=== PATIENT | male | born 1960 | race Caucasian/White ===

== ENCOUNTER 2019-10-14 04:47 | Emergency (ER) | payer OTHER, SELFPAY ==
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
[2019-10-14 05:00] VITALS: BP 172/95; PULSE 65; RESP 20; TEMP 36.8; O2SAT 99
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
[2019-10-14 05:12] LABS: Hematocrit 41.8 % (40.0-54.0); Hemoglobin 14.2 g/dL (14.0-18.0); Mean Corpuscular Hemoglobin 30.5 pg (27.0-31.0); Mean Corpuscular Volume 89.7 fL (78.0-102.0); Mean Platelet Volume 9.9 fl (8.7-11.0); Platelet Count Result 197 K/mm3 (150-420); Red Blood Count 4.66 M/mm3 (4.70-6.10); White Blood Count 6.3 K/mm3 (4.8-10.8)
[2019-10-14 05:21] LABS: Partial Thromboplastin Time 26.5 SEC (22.3-31.6); Prothrombin Time 10.3 Seconds (9.64-11.0)
[2019-10-14 05:25] LABS: Alanine Aminotransferase 39 U/L (16-63); Alkaline Phosphatase 61 U/L (46-116); Anion Gap 16.6 mmol/L (7-16); Aspartate Amino Transferase 22 U/L (15-37); Bilirubin,Total 0.4 mg/dL (0.00-1.00); Blood Urea Nitrogen 17 mg/dL (7-18); Calcium 8.5 mg/dL (8.5-10.1); Carbon Dioxide 23 mmol/L (21-32); Chloride 103 mmol/L (98-108); Estimated CRCL calculation 105 ml/min; Estimated Glomerular Filt Rate > 60; Glucose 105 mg/dL (70-99); Osmolality Calculated 289 mOsm/kg (285-295); Potassium 3.6 mmol/L (3.5-5.1); Sodium 139 mmol/L (136-145); Total Protein 7.7 g/dL (6.4-8.2)
[2019-10-14 05:28] LABS: Ethanol 161 mg/dL (0-6)
[2019-10-14 05:30] VITALS: BP 164/91; PULSE 67; RESP 20; O2SAT 95
--- NOTE | 2019-10-14 05:36 | PC.NURSE ---
Pt. requests transfer to [facility]. Paperwork signed for transfer.
[2019-10-14] MEDS: SODIUM CHLORIDE 0.9% IV 1,000 ML 125 ML IV CONT (05:49)
[2019-10-14 05:56] VITALS: BP 155/95; PULSE 64; RESP 20; O2SAT 93
[2019-10-14 05:58] LABS: Add Urine Microscopic? NO; Appearance Urine Clear (Clear); Bilirubin Urine Negative (Negative); Blood Urine Negative (Negative); Color Urine Straw (Yellow); Glucose Urine UA Negative (Negative); Ketones Urine Negative (Negative); Leukocyte Esterase Ur Negative LEU/UL (Negative); Nitrate Urine Negative (Negative); Protein Urine Negative (Negative); Specific Grav Ur <= 1.005 (1.010-1.020); Urobilinogen Urine 0.2 mg/dL (0.2-1.0); pH Urine 5.5 (5.0-8.0)
--- NOTE | 2019-10-14 06:03 | PC.NURSE ---
[place] [facility]
[2019-10-14 06:07] LABS: Amphetamine Screen Urine Negative (Negative); Barbiturate Screen Urine Negative (Negative); Benzodiazepines Screen Urine Negative (Negative); Cannabinoid Screen Urine Negative (Negative); Cocaine Screen Urine Negative (Negative); Methadone Screen Urine Negative (Negative); Opiate Screen Urine Negative (Negative); Phencyclidine Screen Urine Negative (Negative)
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
[2019-10-14 06:27] VITALS: BP 160/90; PULSE 92; RESP 18; O2SAT 95
[2019-10-14] MEDS: MORPHINE SULFATE 2 MG/ML INJ IV PUSH (06:32)
[2019-10-14 06:41] VITALS: BP 145/79; PULSE 68; RESP 18; O2SAT 93
== END 2019-10-14 07:04 | disposition short-term general hospital (02) ==
PROVIDERS: Emergency Provider Surgery; PCP Internal Medicine
DX: S01.91XA Laceration without foreign body of unspecified part of head, initial encounter (principal); S80.01XA Contusion of right knee, initial encounter; V89.2XXA Person injured in unspecified motor-vehicle accident, traffic, initial encounter
CPT/HCPCS: 36415; 70450; 70486; 71045; 72125; 72170; 73560; 73590; 80053; 80307; 81003; 85027; 85610; 85730; 96361; 96374; 99285; J2270; J7030; L0150

== ENCOUNTER 2022-07-15 09:43 | Outpatient (CLI) | payer OTHER, SELFPAY ==
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
== END 2022-07-15 09:44 | disposition home or self-care (01) ==
LOC: CHSIMG 09:48
PROVIDERS: PCP Internal Medicine; Visit Provider Internal Medicine
DX: M25.561 Pain in right knee (principal); M17.11 Unilateral primary osteoarthritis, right knee
CPT/HCPCS: 73564

== ENCOUNTER 2024-03-04 18:32 | Emergency (ER) | payer OTHER, BC, SELFPAY ==
[2024-03-04 18:32] VITALS: BP 152/72; PULSE 61; RESP 16; TEMP 36.4; O2SAT 96
--- NOTE | 2024-03-04 19:41 | ED.GENADULT ---
HPI - General Adult General Chief complaint: Wound/Laceration Stated complaint: hand lac Time Seen by Provider: 03/04/24 19:08 Source: patient Mode of arrival: ambulatory Limitations: no limitations History of Present Illness HPI narrative: this is a 63-year-old male who presents to the ED with chief complaint of laceration injury to the dorsum of the left hand at the [facility]. This happened just prior to arrival. Patient states that he was trying to fix a broken frame it. One of the glass pieces broke off And slid down his hand. denies any further sites of pain or injury. Tetanus is up today. No blood thinners. Related Data Home Medications Medication Instructions Recorded Confirmed hydrochlorothiazide 12.5 mg capsule 12.5 mg PO DAILY 10/14/19 10/14/19 losartan 100 mg tablet 100 mg PO DAILY 10/14/19 10/14/19 montelukast 10 mg tablet 10 mg PO DAILY 10/14/19 10/14/19 Allergies Allergy/AdvReac Type Severity Reaction Status Date / Time No Known Allergies Allergy Verified 03/04/24 19:23 Review of Systems Review of Systems: All systems as dictated in [facility] Past Medical History Medical History (Updated 03/05/24 @ 00:01 by Nimesh Cisneros) Hypertension Surgical History Surgical History (Updated 10/14/19 @ 05:10 by Steven Sanchez MD) No pertinent past surgical history Family History Family History Father Diabetes mellitus Hypertension Family history of elevated blood lipids Family history of coronary artery disease Mother Hypertension Social History Social History Smoking status: Former smoker Exam Narrative: GENERAL: Well-appearing, well-nourished, and in no acute distress. HEAD: Normocephalic, atraumatic. EYES: PERRLA and EOMI. ENT: Nares clear, no rhinorrhea or epistaxis. Mucous membranes moist. Oropharynx without tonsillar hypertrophy exudate or other lesions. NECK: Supple. No adenopathy or masses. CHEST: No respiratory distress. Clear to auscultation. No wheezes rales or rhonchi HEART: Regular rate and rhythm. No murmur heard. Normal peripheral pulses. ABDOMEN: Soft, nontender, nondistended, normal active bowel sounds. MSK: Normal range of motion. No edema. SKIN: 5 cm laceration to the dorsum of the left hand just proximal to the knuckles. Bleeding controlled. No significant wound depth. Range of motion of the hand fully intact. no foreign bodies noted NEURO: Alert and oriented x4. No focal deficits. PSYCH: Normal mood and affect. Course Vital Signs Vital signs: Vital Signs Temperature 97.6 F 03/04/24 18:32 Pulse Rate 61 03/04/24 18:32 Respiratory Rate 16 03/04/24 18:32 Blood Pressure 152/72 H 03/04/24 18:32 Pulse Oximetry 96 03/04/24 18:32 Temperature 97.6 F 03/04/24 18:32 Pulse Rate 67 03/04/24 20:26 Respiratory Rate 13 03/04/24 20:26 Blood Pressure 148/82 H 03/04/24 20:26 Pulse Oximetry 100 03/04/24 20:26 Procedures Laceration Laceration 1: Date: 03/05/24 Time: 20:00 Site: hand Side (If applicable): left Size (cm): 5 Description: linear Depth: simple, single layer Local Anesthetic: lidocaine 1% and with epi Amount of anesthesia used (mL): 3 Pre-repair: wound explored ====== Skin Level ====== Skin layer closed with: nylon Size (cm): 4-0 Number of sutures: 5 Technique: simple, interrupted ====== Subcutaneous Layer ====== ====== Muscle Layer ====== ====== Tendon Layer ====== Medical Decision Making [facility] Narrative Medical decision making narrative: This is a 63-year-old male who presents to the ED for chief complaint of laceration to the left hand that occurred while trying to fix a glass frame. vitals are normal. Exam shows 5 cm laceration across th
[2024-03-04 20:26] VITALS: BP 148/82; PULSE 67; RESP 13; O2SAT 100
== END 2024-03-04 20:10 | disposition left against medical advice (07) ==
PROVIDERS: Emergency Provider Physician Assistant; PCP Internal Medicine
DX: S61.412A Laceration without foreign body of left hand, initial encounter (principal); I10 Essential (primary) hypertension; Z87.891 Personal history of nicotine dependence; W25.XXXA Contact with sharp glass, initial encounter
CPT/HCPCS: 12002; 99283